=== PATIENT | female | born 1965 | race Caucasian/White ===

== ENCOUNTER 2018-03-23 05:21 | Inpatient (IN) ==
[2018-03-20 09:39] LABS: Basophils # 0.1 10*3/uL (0.0-0.2); Basophils % 1.6 % (0.0-0.8); Eosinophils # 0.3 10*3/uL (0.0-0.87); Eosinophils % 3.8 % (0.00-10.9); Hemoglobin 13.2 GM/DL (12.0-16.0); Immature Granulocytes % 0.2 %; Immature Granulocytes Absolute 0.02 #; Lymphocytes # 3.3 10*3/uL (1.4-4.0); Lymphocytes % 40.2 % (21.3-54.2); Mean Corpuscular HGB Conc 32.2 GM/DL (32-36); Mean Corpuscular Hemoglobin 29 PG (27-34); Mean Corpuscular Volume 89.1 FL (87-102); Monocytes # 0.8 10*3/uL (0.11-0.8); Monocytes % 10.4 % (1.7-12.7); Neutrophils # 3.5 10*3/uL (1.4-7.4); Neutrophils % 43.8 % (38.7-73.9); Platelet Count 263 T/CUMM (130-400); Red Cell Distribution Width 14.6 % (9.3-17.3); White Blood Count 8.1 T/CUMM (4-12)
[2018-03-20 09:48] LABS: PT Patient Result 10.4 SECS; Partial Thromboplastin Time 27.1 SECS (0-40)
[2018-03-20 10:17] LABS: Calcium 9.7 MG/DL (8.5-10.1); Osmolality,Calculated 278.4 MOS/KG (273-304); Potassium 4.3 MMOL/L (3.5-5.1)
[2018-03-20 10:41] LABS: Apearance,Urine CLEAR (Clear); Bacteria,Urine Occasional /HPF (Few); Bilirubin,Urine Negative (Negative); Blood, Urine Negative (Negative); Glucose,Urine (UA) Negative (Negative); Ketones,Urine 5 mg/dL (Negative); Mucus,Urine Occasional /LPF (Occasional); Nitrite,Urine Negative (Negative); Protein,Urine Negative; RBC,Urine 1 /HPF (0-4); Squamous Epithelial Cell,Urine Occasional /HPF (0-10); Urine Color Yellow (Yellow); Urine Specific Gravity 1.017 (1.001-1.035); WBC,Urine <1 /HPF (0-6)
[~2018-03-23 05:21] MED LIST: BUPIVACAINE LIPOSOMAL 20 ML/266 MG VIAL INFILTRAT ONE; SODIUM CHLORIDE 0.9% 1,000 ML IV PRN
[2018-03-23] MEDS ORDERED: CEFUROXIME INJ 1,500 MG in SYRINGE 1 EACH IV ONE (06:00)
[2018-03-23] MEDS ORDERED: CEFUROXIME 1,500 MG VIAL ONE (06:26)
[2018-03-23] MEDS ORDERED: FAMOTIDINE 20 MG TABLET PO ONE (06:29)
[2018-03-23] MEDS ORDERED: ALBUTEROL/IPRATROPIUM 3 ML NEB RESP TX ONE (06:29)
[2018-03-23] MEDS ORDERED: DIAZEPAM 5 MG TABLET PO ONE (06:29)
[2018-03-23] MEDS ORDERED: LACTATED RINGERS 1,000 ML IV SCH (06:30)
[2018-03-23] MEDS ORDERED: BUPIVACAINE LIPOSOMAL 20 ML/266 MG VIAL ONE (06:44)
[2018-03-23] MEDS ORDERED: SODIUM CHLORIDE 0.9% IV ONE (07:30)
[2018-03-23] MEDS ORDERED: DOXYCYCLINE HYCLATE IV ONE (07:30)
[2018-03-23] MEDS ORDERED: ONDANSETRON 4 MG/2 ML VIAL IV PRN ×2 (09:29→09:53)
[2018-03-23 09:34] LABS: Apearance,Urine CLEAR (Clear); Bilirubin,Urine Negative (Negative); Blood, Urine Negative (Negative); Glucose,Urine (UA) Negative (Negative); Ketones,Urine Negative (Negative); Nitrite,Urine Negative (Negative); Protein,Urine Negative; RBC,Urine 4 /HPF (0-4); Urine Color Straw (Yellow); Urine Specific Gravity 1.006 (1.001-1.035); Urine Urobilinogen < 2.0 EU/DL (0.2-1.0)
[2018-03-23] MEDS ORDERED: ALBUTEROL 2.5 MG/3 ML NEB RESP TX ONE (09:52)
[2018-03-23] MEDS ORDERED: SEVOFLURANE 1 UNIT/15 MINUTE INH ONE (09:58)
[2018-03-23] MEDS ORDERED: MIDAZOLAM 2 MG/2 ML VIAL ONE (09:58)
[2018-03-23] MEDS ORDERED: PROPOFOL 200 MG/20 ML VIAL IV ONE (09:58)
[2018-03-23] MEDS ORDERED: fentaNYL 100 MCG/2 ML VIAL ONE (09:59)
[2018-03-23] MEDS ORDERED: GLYCOPYRROLATE 0.4 MG/2 ML VIAL ONE (09:59)
[2018-03-23] MEDS ORDERED: PHENYLEPHRINE 1 MG/10 ML SYRINGE IV ONE (09:59)
[2018-03-23] MEDS ORDERED: DEXAMETHASONE 10 MG/1 ML VIAL ONE (09:59)
[2018-03-23] MEDS ORDERED: ONDANSETRON 4 MG/2 ML VIAL ONE (09:59)
[2018-03-23] MEDS ORDERED: NEOSTIGMINE 10 MG/10 ML VIAL ONE (09:59)
[2018-03-23] MEDS ORDERED: ROCURONIUM 100 MG/10 ML VIAL IV ONE (09:59)
[2018-03-23] MEDS: HYDROmorphone 2 MG/1 ML VIAL IV PRN ×4 (10:17→10:41)
[2018-03-23 11:13] LABS: Basophils # 0.1 10*3/uL (0.0-0.2); Basophils % 0.6 % (0.0-0.8); Eosinophils % 0.2 % (0.00-10.9); Hematocrit 42.7 VOL% (35.7-47.0); Hemoglobin 13.3 GM/DL (12.0-16.0); Immature Granulocytes % 0.6 %; Immature Granulocytes Absolute 0.07 #; Lymphocytes # 1.3 10*3/uL (1.4-4.0); Lymphocytes % 10.4 % (21.3-54.2); Mean Corpuscular HGB Conc 31.1 GM/DL (32-36); Mean Corpuscular Hemoglobin 29 PG (27-34); Mean Platelet Volume 11.9 FL (9.6-12.0); Monocytes # 0.3 10*3/uL (0.11-0.8); Monocytes % 2.3 % (1.7-12.7); Neutrophils # 10.7 10*3/uL (1.4-7.4); Neutrophils % 85.9 % (38.7-73.9); Platelet Count 235 T/CUMM (130-400); Red Blood Count 4.64 MC/CUMM (3.8-5.5); Red Cell Distribution Width 14.8 % (9.3-17.3); White Blood Count 12.4 T/CUMM (4-12)
[2018-03-23] MEDS: POTASSIUM CHLORIDE INJ 10 MEQ in SODIUM CHLORIDE 0.45% 1,000 ML IV SCH ×2 (11:28→18:37)
[2018-03-23] MEDS: KETOROLAC 15 MG/1 ML VIAL IV SCH ×3 (11:28→20:58)
[2018-03-23 11:39] LABS: Osmolality,Calculated 283.1 MOS/KG (273-304); Potassium 3.6 MMOL/L (3.5-5.1)
[2018-03-23] MEDS: GABAPENTIN 100 MG CAPSULE PO SCH ×2 (15:04→20:58)
[2018-03-23] MEDS: ACETAMINOPHEN INJ 1,000 MG in PREMIX 1 EACH IV SCH ×2 (16:30→20:58)
[2018-03-23] MEDS: CEFUROXIME INJ 1,500 MG in SYRINGE 1 EACH IV SCH (16:58)
[2018-03-24] MEDS: KETOROLAC 15 MG/1 ML VIAL IV SCH ×4 (02:44→21:11)
[2018-03-24] MEDS: ENOXAPARIN 40 MG/0.4 ML SYRINGE SUBCUT SCH (02:44)
[2018-03-24] MEDS: POTASSIUM CHLORIDE INJ 10 MEQ in SODIUM CHLORIDE 0.45% 1,000 ML IV SCH ×2 (02:44→11:00)
[2018-03-24] MEDS: ACETAMINOPHEN 500 MG TABLET PO SCH ×4 (02:44→21:11)
[2018-03-24 04:22] LABS: Basophils # 0.1 10*3/uL (0.0-0.2); Basophils % 0.4 % (0.0-0.8); Hematocrit 35.4 VOL% (35.7-47.0); Hemoglobin 11.3 GM/DL (12.0-16.0); Immature Granulocytes % 1.7 %; Immature Granulocytes Absolute 0.26 #; Lymphocytes # 2.4 10*3/uL (1.4-4.0); Lymphocytes % 15.4 % (21.3-54.2); Mean Corpuscular HGB Conc 31.9 GM/DL (32-36); Mean Corpuscular Hemoglobin 29 PG (27-34); Mean Corpuscular Volume 89.6 FL (87-102); Mean Platelet Volume 12.3 FL (9.6-12.0); Monocytes # 1.2 10*3/uL (0.11-0.8); Monocytes % 8.1 % (1.7-12.7); Neutrophils # 11.4 10*3/uL (1.4-7.4); Neutrophils % 74.4 % (38.7-73.9); Platelet Count 202 T/CUMM (130-400); Red Blood Count 3.95 MC/CUMM (3.8-5.5); Red Cell Distribution Width 14.8 % (9.3-17.3); White Blood Count 15.3 T/CUMM (4-12)
[2018-03-24 04:40] LABS: Calcium 8.4 MG/DL (8.5-10.1); Potassium 4.4 MMOL/L (3.5-5.1)
[2018-03-24] MEDS ORDERED: traMADol 50 MG TABLET PO PRN (06:00)
[2018-03-24] MEDS: CEFUROXIME INJ 1,500 MG in SYRINGE 1 EACH IV SCH (06:24)
[2018-03-24] MEDS: GABAPENTIN 100 MG CAPSULE PO SCH (09:03)
[2018-03-24] MEDS: CELECOXIB 200 MG CAPSULE PO SCH ×2 (09:03→21:11)
[2018-03-24] MEDS: PANTOPRAZOLE 40 MG VIAL IV SCH (09:05)
[2018-03-24] MEDS ORDERED: CYCLOBENZAPRINE 10 MG TABLET PO PRN (12:33)
[2018-03-24] MEDS ORDERED: NON-FORMULARY MEDICATION (Etanercept [Enbrel] 50 MG) SQ SCH (12:33)
[2018-03-24] MEDS: GABAPENTIN 300 MG CAPSULE PO SCH (21:11)
[2018-03-24] MEDS: SERTRALINE 50 MG TABLET PO SCH (21:11)
[2018-03-25] MEDS: ENOXAPARIN 40 MG/0.4 ML SYRINGE SUBCUT SCH (03:25)
[2018-03-25] MEDS: ACETAMINOPHEN 500 MG TABLET PO SCH ×4 (03:25→21:17)
[2018-03-25] MEDS: KETOROLAC 15 MG/1 ML VIAL IV SCH (03:25)
[2018-03-25 07:01] LABS: Basophils # 0.1 10*3/uL (0.0-0.2); Basophils % 0.9 % (0.0-0.8); Eosinophils # 0.3 10*3/uL (0.0-0.87); Eosinophils % 2.5 % (0.00-10.9); Hematocrit 34.9 VOL% (35.7-47.0); Hemoglobin 11.1 GM/DL (12.0-16.0); Immature Granulocytes % 0.4 %; Immature Granulocytes Absolute 0.04 #; Lymphocytes # 3.4 10*3/uL (1.4-4.0); Lymphocytes % 29.6 % (21.3-54.2); Mean Corpuscular HGB Conc 31.8 GM/DL (32-36); Mean Corpuscular Hemoglobin 29 PG (27-34); Mean Corpuscular Volume 89.5 FL (87-102); Mean Platelet Volume 12.9 FL (9.6-12.0); Monocytes # 0.9 10*3/uL (0.11-0.8); Monocytes % 8.3 % (1.7-12.7); Neutrophils # 6.6 10*3/uL (1.4-7.4); Neutrophils % 58.3 % (38.7-73.9); Platelet Count 200 T/CUMM (130-400); Red Cell Distribution Width 14.9 % (9.3-17.3); White Blood Count 11.3 T/CUMM (4-12)
[2018-03-25 07:16] LABS: Calcium 8.6 MG/DL (8.5-10.1); Osmolality,Calculated 279.4 MOS/KG (273-304); Potassium 4.1 MMOL/L (3.5-5.1)
[2018-03-25] MEDS: CELECOXIB 200 MG CAPSULE PO SCH ×2 (09:52→21:17)
[2018-03-25] MEDS: HYDROXYCHLOROQUINE 200 MG TABLET PO SCH (09:52)
[2018-03-25] MEDS: hydroCHLOROthiazide 12.5 MG CAPSULE PO SCH (09:52)
[2018-03-25] MEDS: ATORVASTATIN 40 MG TABLET PO SCH (09:53)
[2018-03-25] MEDS: PANTOPRAZOLE 40 MG VIAL IV SCH (09:53)
[2018-03-25] MEDS: GABAPENTIN 300 MG CAPSULE PO SCH (21:17)
[2018-03-25] MEDS: SERTRALINE 50 MG TABLET PO SCH (21:17)
[2018-03-26] MEDS: ENOXAPARIN 40 MG/0.4 ML SYRINGE SUBCUT SCH (03:45)
[2018-03-26] MEDS: ACETAMINOPHEN 500 MG TABLET PO SCH ×4 (03:45→21:08)
[2018-03-26 04:35] LABS: Basophils # 0.1 10*3/uL (0.0-0.2); Basophils % 0.9 % (0.0-0.8); Eosinophils # 0.4 10*3/uL (0.0-0.87); Eosinophils % 4.6 % (0.00-10.9); Hematocrit 32.5 VOL% (35.7-47.0); Hemoglobin 10.3 GM/DL (12.0-16.0); Immature Granulocytes % 0.3 %; Immature Granulocytes Absolute 0.03 #; Lymphocytes # 2.5 10*3/uL (1.4-4.0); Lymphocytes % 27.5 % (21.3-54.2); Mean Corpuscular HGB Conc 31.7 GM/DL (32-36); Mean Corpuscular Hemoglobin 29 PG (27-34); Mean Corpuscular Volume 90.8 FL (87-102); Mean Platelet Volume 12.5 FL (9.6-12.0); Monocytes # 1.1 10*3/uL (0.11-0.8); Monocytes % 12.1 % (1.7-12.7); Neutrophils % 54.6 % (38.7-73.9); Platelet Count 194 T/CUMM (130-400); Red Blood Count 3.58 MC/CUMM (3.8-5.5); Red Cell Distribution Width 14.8 % (9.3-17.3); White Blood Count 9.1 T/CUMM (4-12)
[2018-03-26 04:57] LABS: Calcium 8.5 MG/DL (8.5-10.1); Osmolality,Calculated 280.3 MOS/KG (273-304); Potassium 4.4 MMOL/L (3.5-5.1)
[2018-03-26] MEDS: HYDROXYCHLOROQUINE 200 MG TABLET PO SCH (09:16)
[2018-03-26] MEDS: ATORVASTATIN 40 MG TABLET PO SCH (09:16)
[2018-03-26] MEDS: CELECOXIB 200 MG CAPSULE PO SCH ×2 (09:16→21:08)
[2018-03-26] MEDS: hydroCHLOROthiazide 12.5 MG CAPSULE PO SCH (09:16)
[2018-03-26] MEDS: PANTOPRAZOLE 40 MG VIAL IV SCH (09:21)
[2018-03-26] MEDS: GABAPENTIN 300 MG CAPSULE PO SCH (21:08)
[2018-03-26] MEDS: SERTRALINE 50 MG TABLET PO SCH (21:08)
[2018-03-27] MEDS: ACETAMINOPHEN 500 MG TABLET PO SCH ×2 (03:46→08:31)
[2018-03-27] MEDS: ENOXAPARIN 40 MG/0.4 ML SYRINGE SUBCUT SCH (03:50)
[2018-03-27 07:49] VITALS: BP 120/77
[2018-03-27] MEDS: CELECOXIB 200 MG CAPSULE PO SCH (08:30)
[2018-03-27] MEDS: hydroCHLOROthiazide 12.5 MG CAPSULE PO SCH (08:31)
[2018-03-27] MEDS: HYDROXYCHLOROQUINE 200 MG TABLET PO SCH (08:31)
[2018-03-27] MEDS: ATORVASTATIN 40 MG TABLET PO SCH (08:31)
[2018-03-27] MEDS: PANTOPRAZOLE 40 MG VIAL IV SCH (08:32)
== END 2018-03-27 11:24 | disposition home health service (06) | DRG 143 ==
LOC: N.SDSINP 05:21 → N.ICU 10:47 → N.TELES 03-24 12:05
PROVIDERS: ADMIT Thoracic Surgery (Cardiothoracic Vascular Surgery); ATTEND Thoracic Surgery (Cardiothoracic Vascular Surgery)